=== PATIENT | male | born 1995 | race Caucasian/White ===

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

== ENCOUNTER 2017-01-31 06:45 | Inpatient (IN) | payer BC ==
[~2017-01-31] VITALS: Ht 180.3 cm; Wt 80.0 kg
[~2017-01-31 06:45] MED LIST: NO MEDS
[2017-01-31 07:09] VITALS: BP 134/75
[2017-01-31] MEDS ORDERED: FENTANYL PF 250 MCG/5ML ONE (07:46)
[2017-01-31] MEDS ORDERED: MIDAZOLAM 1 MG/ML, 2ML ONE (07:46)
[2017-01-31] MEDS: LACTATED RINGERS 1,000 ML IV SCH ×2 (08:04→08:05)
[2017-01-31] MEDS ORDERED: DEXAMETHASONE 4 MG/ML, 1ML ONE (09:46)
[2017-01-31] MEDS ORDERED: PROPOFOL 10 MG/ML, 20ML ONE (09:46)
[2017-01-31] MEDS ORDERED: ONDANSETRON 2MG/ML, 2ML ONE (09:46)
[2017-01-31] MEDS ORDERED: CEFAZOLIN 1,000 MG ONE (09:46)
[2017-01-31] MEDS ORDERED: LORazepam 2 MG/ML, 1ML IVPush PRN (10:00)
[2017-01-31] MEDS ORDERED: hydrALAzine 20 MG/ML, 1ML IV PRN (10:00)
[2017-01-31] MEDS ORDERED: HYDROmorphone 1 MG/ML, 1ML IV PRN (10:00)
[2017-01-31] MEDS ORDERED: OXYcodone 5 MG/5 ML ORAL.SOL UDC PO PRN (10:00)
[2017-01-31] MEDS ORDERED: LABETALOL 5MG/ML, 20ML IV PRN (10:00)
[2017-01-31] MEDS ORDERED: MEPERIDINE/PF 25MG/0.5ML IVPush PRN (10:00)
[2017-01-31] MEDS ORDERED: FENTANYL PF 100 MCG/2ML IV PRN (10:00)
[2017-01-31] MEDS ORDERED: ALBUTEROL SULFATE 2.5 MG/3 ML NPPB PRN (10:00)
[2017-01-31] MEDS ORDERED: PROMETHAZINE 25 MG/ML, 1ML IV PRN (10:00)
[2017-01-31] MEDS ORDERED: ACETAMINOPHEN 325 MG TABLET PO PRN (10:00)
[2017-01-31] MEDS ORDERED: MEPERIDINE/PF 50 MG/ML ONE (10:09)
[2017-01-31] MEDS ORDERED: NEOSPORIN OINT, 15GM ONE (10:18)
[2017-01-31] MEDS ORDERED: FENTANYL PF 100 MCG/2ML ONE (10:41)
[2017-01-31] MEDS ORDERED: OXYcodone 5 MG/5 ML ORAL.SOL UDC ONE (10:42)
[2017-01-31] MEDS ORDERED: HYDROmorphone 2 MG/ML, 1ML ONE (10:47)
== END 2017-01-31 12:15 | disposition home or self-care (01) | DRG 494 ==
LOC: ORIP 06:45 → EDSTATUS 09:00
PROVIDERS: ADMIT Orthopaedic Surgery; ATTEND Orthopaedic Surgery
PROC: 0QHG06Z Insertion of Intramedullary Internal Fixation Device into Right Tibia, Open Approach (ICD-10-PCS; 2017-01-31)
PROC: 0QPG04Z Removal of Internal Fixation Device from Right Tibia, Open Approach (ICD-10-PCS; principal; 2017-01-31 09:00)
DX: S82.201A Unspecified fracture of shaft of right tibia, initial encounter for closed fracture (principal); F12.90 Cannabis use, unspecified, uncomplicated; X58.XXXD Exposure to other specified factors, subsequent encounter
CPT/HCPCS: 76000; 87070; 87075; 87176; 87205; C1713; J0690; J1100; J1170; J2175; J2250; J2405; J2704; J3010; C1769; J7120